=== PATIENT | female | born 1930 | race African-American/Black ===

== ENCOUNTER 2016-05-20 09:14 | Outpatient (CLI) | payer MEDICARE ==
[2016-05-20 12:43] LABS: #Basophils 0.1 thou/uL (0.0-0.2); #Eosinphils 0.4 thou/uL (0.0-0.7); #Lymphocytes 2.5 thou/uL (1.20-3.40); #Monocytes 0.6 thou/uL (0.11-0.59); #Neutrophils 3.3 thou/uL (1.40-6.50); %Basophils 2.2 % (0.0-1.0); %Eosinophils 5.5 % (0.0-10.0); %Lymphocytes 36.2 % (21.0-51.0); %Monocytes 8.3 % (0.0-10.0); Hematocrit 44.4 % (36.0-47.0); Mean Platelet Volume 8.1 fL (7.4-10.4); Red Blood Cell (RBC) Count 5.03 mill/uL (4.20-5.40); White Blood Cell (WBC) Count 6.8 thou/uL (4.8-10.8)
[2016-05-20 13:20] LABS: Bilirubin Negative (Negative); Blood, Urine Negative (Negative); Glucose, Urine (Dipstick) Negative (Negative); Ketone, Urine Negative (Negative); Nitrite Negative (Negative); Protein, Urine (Dipstick) Negative (Neg-Trace); Urobilinogen 0.2 mg/dL (0.2-1.0)
[2016-05-20 13:21] LABS: ALT (SGPT) 10 U/L (0-55); AST (SGOT) 15 U/L (5-34); Alkaline Phosphatase 73 U/L (40-150); Anion Gap 18 mmol/L (10-20); BUN (Urea Nitrogen) 26 mg/dL (9.8-20.1); Bilirubin, Total 0.6 mg/dL (0.2-1.2); Calc. Creatinine Clearance 0 mL/min (70-130); Calcium 9.4 mg/dL (7.8-10.44); Carbon Dioxide 22 mmol/L (23-31); Chloride 106 mmol/L (98-107); Estimated GFR-MDRD 38; Globulin 2.6 g/dL (2.4-3.5); LDL Cholesterol, Calculated 83 mg/dL; Protein, Total 6.7 g/dL (5.8-8.1)
[2016-05-20 13:54] LABS: Bacteria/HPF 4+ HPF (None Seen); RBC/HPF 0-3 HPF (0-3)
== END 2016-05-20 09:15 ==
LOC: NAVSJIPCSP 09:14
PROVIDERS: ATTEND Internal Medicine
DX: I13.0 Hypertensive heart and chronic kidney disease with heart failure and stage 1 through stage 4 chronic kidney disease, or unspecified chronic kidney disease (principal); I50.9 Heart failure, unspecified; N18.3 Chronic kidney disease, stage 3 (moderate); M19.90 Unspecified osteoarthritis, unspecified site; Z79.899 Other long term (current) drug therapy
CPT/HCPCS: 36415; 80053; 80061; 81003; 81015; 84443; 85025

== ENCOUNTER 2016-09-20 11:54 | Outpatient (CLI) | payer MEDICARE, OTHER ==
[2016-09-20 13:39] LABS: Anion Gap 18 mmol/L (10-20); BUN (Urea Nitrogen) 21 mg/dL (9.8-20.1); Calc. Creatinine Clearance 0 mL/min (70-130); Calcium 9.4 mg/dL (7.8-10.44); Carbon Dioxide 27 mmol/L (23-31); Chloride 105 mmol/L (98-107); Estimated GFR-MDRD 45; Glucose 104 mg/dL (83-110); Potassium 3.8 mmol/L (3.5-5.1); Sodium 146 mmol/L (136-145)
== END 2016-09-20 11:55 | disposition home or self-care (01) ==
LOC: NAVSJIPCSP 11:54
PROVIDERS: ATTEND Internal Medicine
DX: I50.9 Heart failure, unspecified (principal); N18.3 Chronic kidney disease, stage 3 (moderate)
CPT/HCPCS: 36415; 80048; 83880

== ENCOUNTER 2016-09-29 08:22 | Emergency (ER) | payer MEDICARE, OTHER ==
[2016-09-29] MEDS ORDERED: Nitroglycerin 2% Ointment 1 INCH/1 GM Packet ONE (08:33)
[2016-09-29] MEDS ORDERED: Iopamidol 370 76% 100 ML VIAL ONE (09:00)
[2016-09-29 09:20] LABS: Hemoglobin 11.5 g/dL (12.0-16.0); Mean Corpuscular HGB CONC 31.9 g/dL (32.0-36.0); Mean Corpuscular Hemoglobin 26.7 pg (27.0-31.0); Mean Corpuscular Volume 83.8 fl (81.0-99.0); Mean Platelet Volume 7.1 fL (7.4-10.4); Platelet Count 162 thou/uL (130-400); RBC Distribution Width 13.2 % (11.5-14.5); Red Blood Cell (RBC) Count 4.29 mill/uL (4.20-5.40); White Blood Cell (WBC) Count 7.9 thou/uL (4.8-10.8)
[2016-09-29 09:21] LABS: Band 2 % (5-11); Eosinophils 3 % (0-10); Lymphocytes 7 % (21-51); MDiff Complete? YES; Monocytes 3 % (0-10); Neutrophil 85 % (42-75); PLT Morphology Comment Appears Adequate
[2016-09-29 09:23] LABS: ALT (SGPT) 13 U/L (8-55); AST (SGOT) 19 U/L (5-34); Albumin 3.4 g/dL (3.4-4.8); Alkaline Phosphatase 65 U/L (40-150); Anion Gap 17 mmol/L (10-20); BUN (Urea Nitrogen) 12 mg/dL (9.8-20.1); Bilirubin, Total 0.9 mg/dL (0.2-1.2); Calc. Creatinine Clearance 0 mL/min (70-130); Calcium 8.8 mg/dL (7.8-10.44); Carbon Dioxide 17 mmol/L (23-31); Chloride 111 mmol/L (98-107); Estimated GFR-MDRD 66; Globulin 2.8 g/dL (2.4-3.5); Glucose 118 mg/dL (83-110); Potassium 3.8 mmol/L (3.5-5.1); Protein, Total 6.2 g/dL (6.0-8.3); Sodium 141 mmol/L (136-145); Troponin I 0.044 ng/mL (< 0.028)
[2016-09-29] MEDS ORDERED: Furosemide 20 MG/2 ML VIAL ONE (09:32)
--- NOTE | 2016-09-29 09:40 | RAD ---
AP PORTABLE SITTING CHEST 1 VIEW: Date: 09/29/16 HISTORY: 86-year-old female with shortness of breath. COMPARISON: 02/03/12. FINDINGS: Monitor leads overlie the chest. Cardiomegaly with extensive bilateral interstitial and alveolar par enchymal changes bilaterally, somewhat more confluent on the right side, including the right upper l obe and right lower lobe. There are bilateral pleural effusions. These bilateral parenchymal changes are new from the prior study. There is severe bilateral shoulder joint arthrosis. IMPRESSION: Cardiomegaly with bilateral interstitial and alveolar parenchymal changes, slightly more confluent i n the right upper lobe and right lower lobe, with bilateral pleural effusions and cardiomegaly, evid ence for some asymmetric pulmonary edema. In an appropriate clinical situation, bilateral pneumonia could have a similar appearance, or a combination of pneumonia and edema is another consideration. C orrelate clinically in this regard. POS: OFF
[2016-09-29] MEDS ORDERED: Metoprolol Tartrate 5 MG/5 ML VIAL ONE (10:23)
[2016-09-29] MEDS ORDERED: Albuterol Sulfate 2.5 mg/0.5 ml Neb ONE ×2 (10:24)
[2016-09-29] MEDS ORDERED: cefTRIAXone\\ROCEPHIN 2 GM VIAL ONE (10:25)
[2016-09-29] MEDS ORDERED: Sodium Chloride 0.9% 100 ML ONE (10:26)
--- NOTE | 2016-09-29 11:04 | CT ---
CT ANGIO OF CHEST PERFORMED WITH IV CONTRAST ENHANCEMENT WITH 3D RECONSTRUCTIONS: Date: 09/29/16 HISTORY: Shortness of breath. FINDINGS: There is asymmetric predominantly right-sided parahilar interstitial alveolar lung change. There are associated bilateral pleural effusions, right larger than left. No pulmonary nodules are identified . The thoracic aorta is normal in caliber. Pulmonary arteries are well opacified. There is no CT evide nce for pulmonary embolus. Visualized liver parenchyma shows no focal abnormalities. Left kidney is only partially visualized. There is a cortical calcification noted. There is what appears to be some dilatation to the left mago al pelvis. I am not certain whether this is renal pelvis dilatation or parapelvic cysts. It does lolis ear to be a different appearance than on an older 2012 study. It raises the possibility there may be a ureteral calculus. IMPRESSION: 1. No CT evidence of pulmonary embolus. 2. Parahilar lung changes asymmetrically involving the right lung with bilateral effusions. This is most likely related to an asymmetric pulmonary edema pattern, less likely pneumonia. 3. Suggestion of dilatation of partially visualized left renal collecting system. Left kidney appea rs somewhat atrophic. The possibility there is an obstructing ureteral calculus should be considered and a CT of the abdomen and pelvis may be indicated if clinically indicated. 4. Trace ascites also incidentally noted. POS: ES
[2016-09-29] MEDS ORDERED: Azithromycin 500 MG VIAL ONE (11:28)
[2016-09-29] MEDS ORDERED: Sodium Chloride 0.9% 250 ML 250 ML ONE (11:28)
== END 2016-09-29 12:13 | disposition short-term general hospital (02) ==
LOC: NAV ERS 08:22
DX: R60.0 Localized edema (principal); R79.89 Other specified abnormal findings of blood chemistry; J90 Pleural effusion, not elsewhere classified; K21.9 Gastro-esophageal reflux disease without esophagitis; I10 Essential (primary) hypertension; Z79.891 Long term (current) use of opiate analgesic; Z79.82 Long term (current) use of aspirin; Z79.899 Other long term (current) drug therapy
CPT/HCPCS: 71010; 71275; 80053; 82553; 83880; 84484; 85025; 85379; 87040; 93005; 94640; 96365; 96367; 96375; J0360; J0456; J0696; J1940; J7050; J7611; J7620

== ENCOUNTER 2016-10-11 12:10 | Outpatient (CLI) | payer MEDICARE ==
[2016-10-11 13:36] LABS: Anion Gap 21 mmol/L (10-20); BUN (Urea Nitrogen) 20 mg/dL (9.8-20.1); Calc. Creatinine Clearance 0 mL/min (70-130); Calcium 8.9 mg/dL (7.8-10.44); Carbon Dioxide 14 mmol/L (23-31); Chloride 108 mmol/L (98-107); Estimated GFR-MDRD 46; Glucose 106 mg/dL (83-110); Sodium 138 mmol/L (136-145)
[2016-10-11 14:24] LABS: Potassium 5.4 mmol/L (3.5-5.1)
== END 2016-10-11 12:11 | disposition home or self-care (01) ==
LOC: NAV LAB 12:10
PROVIDERS: ATTEND Internal Medicine
DX: N18.3 Chronic kidney disease, stage 3 (moderate) (principal); I50.9 Heart failure, unspecified
CPT/HCPCS: 36415; 83880

== ENCOUNTER 2016-10-20 15:34 | Outpatient (CLI) | payer MEDICARE ==
[2016-10-20 16:53] LABS: Anion Gap 17 mmol/L (10-20); BUN (Urea Nitrogen) 15 mg/dL (9.8-20.1); Calc. Creatinine Clearance 0 mL/min (70-130); Calcium 9.1 mg/dL (7.8-10.44); Carbon Dioxide 22 mmol/L (23-31); Chloride 108 mmol/L (98-107); Estimated GFR-MDRD 50; Glucose 102 mg/dL (83-110); Potassium 4.3 mmol/L (3.5-5.1); Sodium 143 mmol/L (136-145)
== END 2016-10-20 15:35 | disposition home or self-care (01) ==
LOC: NAV LAB 15:34
PROVIDERS: ATTEND Nurse Practitioner Family
DX: I50.9 Heart failure, unspecified (principal)
CPT/HCPCS: 80048

== ENCOUNTER 2016-12-08 13:26 | Outpatient (CLI) | payer MEDICARE, OTHER ==
[2016-12-08 14:10] LABS: Anion Gap 17 mmol/L (10-20); BUN (Urea Nitrogen) 19 mg/dL (9.8-20.1); Calc. Creatinine Clearance 0 mL/min (70-130); Carbon Dioxide 23 mmol/L (23-31); Chloride 104 mmol/L (98-107); Estimated GFR-MDRD 53; Glucose 98 mg/dL (83-110); Potassium 4.1 mmol/L (3.5-5.1); Sodium 140 mmol/L (136-145)
== END 2016-12-08 13:27 | disposition home or self-care (01) ==
LOC: NAV LAB 13:26
PROVIDERS: ATTEND Internal Medicine
DX: N18.3 Chronic kidney disease, stage 3 (moderate) (principal); I50.9 Heart failure, unspecified
CPT/HCPCS: 36415; 80048; 83880

== ENCOUNTER 2017-07-16 09:34 | Inpatient (IN) | payer MEDICARE ==
[2017-07-16] MEDS ORDERED: Acetaminophen 500 MG TAB ONE (10:16)
[2017-07-16] MEDS ORDERED: Sodium Chloride 0.9% 250 ML 0 ML ONE (10:17)
[2017-07-16] MEDS ORDERED: Sodium Chloride 0.9% 100 ML ONE (10:17)
[2017-07-16] MEDS ORDERED: cefTRIAXone\\ROCEPHIN 1 GM VIAL ONE (10:17)
[2017-07-16] MEDS ORDERED: Sodium Chloride 0.9% 250 ML 250 ML ONE (10:18)
[2017-07-16 10:25] LABS: #Basophils 0.1 thou/uL (0.0-0.2); #Eosinphils 0.5 thou/uL (0.0-0.7); #Lymphocytes 0.9 thou/uL (1.20-3.40); #Monocytes 0.9 thou/uL (0.11-0.59); #Neutrophils 6.5 thou/uL (1.40-6.50); %Basophils 1.6 % (0.0-1.0); %Eosinophils 5.1 % (0.0-10.0); %Lymphocytes 10.5 % (21.0-51.0); %Monocytes 9.8 % (0.0-10.0); Hemoglobin 12.6 g/dL (12.0-16.0); Mean Corpuscular HGB CONC 31.7 g/dL (32.0-36.0); Mean Corpuscular Hemoglobin 25.7 pg (27.0-31.0); Mean Corpuscular Volume 81.3 fl (81.0-99.0); Mean Platelet Volume 8.7 fL (7.4-10.4); Platelet Count 182 thou/uL (130-400); RBC Distribution Width 12.4 % (11.5-14.5); Red Blood Cell (RBC) Count 4.88 mill/uL (4.20-5.40); White Blood Cell (WBC) Count 8.9 thou/uL (4.8-10.8)
[2017-07-16 10:42] LABS: CKMB 0.3 ng/mL (0-6.6)
[2017-07-16 10:57] LABS: Anion Gap 13 mmol/L (10-20); BUN (Urea Nitrogen) 11 mg/dL (9.8-20.1); Calc. Creatinine Clearance 0 mL/min (70-130); Calcium 8.8 mg/dL (7.8-10.44); Carbon Dioxide 28 mmol/L (23-31); Chloride 102 mmol/L (98-107); Estimated GFR-MDRD 65; Glucose 129 mg/dL (83-110); Potassium 3.1 mmol/L (3.5-5.1); Sodium 140 mmol/L (136-145)
--- NOTE | 2017-07-16 11:03 | RAD ---
AP VIEW OF THE CHEST: INDICATION: Productive cough. COMPARISON: Prior exam dated 10/01/16. FINDINGS: There is cardiomegaly with pulmonary vascular congestion. There are small bilateral pleural effusion s. No confluent airspace opacity is evident. Chronic osseous change is similar. IMPRESSION: Findings most suspicious for volume overload or congestive heart failure. POS: [facility]
[2017-07-16] MEDS ORDERED: Potassium Chloride 20 MEQ/100 ML PREMIX BAG ONE (11:15)
[2017-07-16] MEDS ORDERED: Furosemide 40 MG/4 ML VIAL ONE (11:33)
[2017-07-16 12:30] LABS: Bilirubin Negative (Negative); Blood, Urine Negative (Negative); Glucose, Urine (Dipstick) Negative (Negative); Leukocyte Moderate (Negative); Nitrite Negative (Negative); Protein, Urine (Dipstick) 30 mg/dL (Neg-Trace); Specific Gravity, Urine 1.015 (1.005-1.030)
[2017-07-16 12:32] LABS: Clarity SL HAZY (Clear)
[2017-07-16 12:46] LABS: Bacteria/HPF 3+ HPF (None Seen); RBC/HPF 0-3 HPF (0-3); Transitional Epithelial 0-3 HPF (0-3)
[2017-07-16] MEDS ORDERED: HYDROcodone/Acetaminophen 5/325 mg Tablet PO PRN ×2 (14:43)
[2017-07-16] MEDS ORDERED: Ondansetron HCl/PF 4 MG/2 ML Vial IVP PRN (14:43)
[2017-07-16] MEDS ORDERED: Acetaminophen 325 MG TAB PO PRN (14:43)
[2017-07-16] MEDS ORDERED: Sodium Chloride 0.9% 1,000 ML IV SCH (14:43)
[2017-07-16] MEDS ORDERED: Ondansetron ODT 4 MG TAB SL PRN (14:43)
[2017-07-16] MEDS ORDERED: Acetaminophen 500 MG TAB PO PRN (17:42)
[2017-07-16] MEDS ORDERED: Bisacodyl 10 MG SUPP PR PRN (17:43)
[2017-07-16] MEDS ORDERED: Milk Of Magnesia 30 ML UDCUP PO PRN (17:43)
[2017-07-16] MEDS ORDERED: Loperamide HCl 2 MG CAP PO PRN (17:43)
[2017-07-16] MEDS: hydrALAZINE 25 MG TAB PO SCH (21:50)
[2017-07-17 05:34] LABS: Band 5 % (5-11); Eosinophils 6 % (0-10); Hemoglobin 11.4 g/dL (12.0-16.0); Lymphocytes 21 % (21-51); MDiff Complete? YES; Mean Corpuscular HGB CONC 32.1 g/dL (32.0-36.0); Mean Corpuscular Hemoglobin 26.1 pg (27.0-31.0); Mean Corpuscular Volume 81.5 fl (81.0-99.0); Mean Platelet Volume 9.1 fL (7.4-10.4); Monocytes 10 % (0-10); Neutrophil 58 % (42-75); PLT Morphology Comment Appears Adequate; Platelet Count 177 thou/uL (130-400); RBC Distribution Width 12.7 % (11.5-14.5); RBC Morphology Normal; Red Blood Cell (RBC) Count 4.38 mill/uL (4.20-5.40); White Blood Cell (WBC) Count 8.4 thou/uL (4.8-10.8)
[2017-07-17 05:46] LABS: ALT (SGPT) 8 U/L (8-55); AST (SGOT) 12 U/L (5-34); Albumin 2.8 g/dL (3.4-4.8); Alkaline Phosphatase 54 U/L (40-150); Anion Gap 11 mmol/L (10-20); BUN (Urea Nitrogen) 12 mg/dL (9.8-20.1); Bilirubin, Total 0.6 mg/dL (0.2-1.2); Calc. Creatinine Clearance 50 mL/min (70-130); Calcium 8.3 mg/dL (7.8-10.44); Carbon Dioxide 28 mmol/L (23-31); Chloride 104 mmol/L (98-107); Estimated GFR-MDRD 65; Globulin 2.7 g/dL (2.4-3.5); Glucose 111 mg/dL (83-110); Potassium 3.1 mmol/L (3.5-5.1); Protein, Total 5.5 g/dL (6.0-8.3); Sodium 140 mmol/L (136-145)
--- NOTE | 2017-07-17 06:13 | HP ---
DATE OF ADMISSION: 07/16/2017 HISTORY OF PRESENT ILLNESS: This is a very pleasant 87-year-old white female that presented to the emergency room with a 4 day history of cough productive of sputum. She states it just kind of started out of the blue, and she has not had any significant findings of cold, wheezing or feelings of SOB. The patient has also had some urinary burning. Nonetheless, she presented to the emergency room, was evaluated and found on chest x-ray to have some cardiomegaly and pulmonary vascular congestion. She also noted to have a urinary tract infection. She was given Lasix 40 IV push, potassium chloride 20 mEq IV piggyback, a gram of vancomycin, a gram of ceftriaxone, a DuoNeb treatment and some Extra Strength Tylenol. She was admitted to Observation for primary diagnosis of congestive heart failure along with a secondary diagnosis of urinary tract infection. PAST MEDICAL HISTORY: 1. Significant for congestive heart failure. 2. Chronic kidney disease stage 3. 3. Hypertension. 4. Osteoarthritis. 5. Intestinal adhesions. 6. Trochanteric tendonitis of the right hip. PAST SURGICAL HISTORY: The patient had appendectomy, cholecystectomy and abdominal hysterectomy. FAMILY HISTORY: Positive for the father being , diagnosed with hypertension. SOCIAL HISTORY: Reveals the patient is a nonsmoker. Does not use alcohol. Does not use drugs. Does drink some caffeine. ALLERGIES: Reveals she is allergic to ALLOPURINOL and ALEVE. PRESENT MEDICATIONS: Reveals she is on the following medications: 1. Aspirin 81 mg a day. 2. Atenolol 100 mg once a day. 3. Amlodipine 5 mg once a day. 4. Lisinopril 40 mg once a day. 5. Hydralazine 25 mg 2 tablets twice a day. 6. Aspirin 81 mg a day. 7. Furosemide 40 mg half a tablet twice a day. 8. Clonidine 0.2 mg patch once a week, transdermal patch once a week. 9. Omeprazole 20 mg a day. 10. Potassium chloride 20 mEq every day. 11. Tramadol 50 mg 1 tablet by mouth up to twice a day. REVIEW OF SYSTEMS: Reveal the patient has had some low grade temperature, but no sweats. She has had some chills. Denies any headache, denies any runny nose , sinus congestion, popping of the ears. She does admit to some productive cough, but no wheezing, no shortness of breath. Denies any chest pain, palpitations or pain radiating down her arms. She denies any nausea, vomiting, diarrhea or constipation. She does admit to some urgency and increased urination with occasional dysuria. She denies any significant arthritis, different from usual. Denies any edema in her legs, although she does have 1+ edema on admission. PHYSICAL EXAMINATION: GENERAL: This is a well-developed, well-nourished, very pleasant white female in no apparent distress at this time. HEENT: Reveals normocephalic, nontraumatic cranium. The pupils are equally round and reactive. Extraocular movements intact. Nose and throat are slightly dry. NECK: Supple, without masses, nodes or bruits. LUNGS: The chest is clear to auscultation in the upper regions, but has some mild crackles in the lower regions. HEART: Reveals a regular rate and rhythm without murmurs, gallops or rubs. ABDOMEN: Obese, soft, nontender, without organomegaly. Normal bowel sounds are noted in all 4 quadrants. No rebound or guarding is noted. : Deferred. EXTREMITIES: Reveal no clubbing, cyanosis with trace to 1+ edema. NEUROLOGIC: The patient is grossly intact. IMPRESSION: 1. Acute on chronic congestive heart failure. 2. Chronic kidney disease stage 3. 3. Hypertension. 4. Osteoarthritis. 5. History of intestinal bands with obstruction in the past. 6. History of gastroesophageal reflux disease with reflux. PLAN: 1. The patient is admitted to the hospital. 2. We will diurese her slowly. 3. We will continue to monitor her blood pressure closely. 4. Continue all of her present medications. 5. We will monitor her renal status and make sure she does not over exert her kidneys. 6. We will notify Dr. Daniel of her admission, so he can see her tomorrow. [facility] INSANEMarian[facility]
[2017-07-17] MEDS: Docusate 100 MG CAP PO SCH (08:35)
[2017-07-17] MEDS: Potassium Chloride 10 MEQ TAB PO SCH (08:35)
[2017-07-17] MEDS: Lisinopril 20 MG TAB PO SCH (08:35)
[2017-07-17] MEDS: Polyethylene Glycol 3350 17 GM Packet PO SCH (08:35)
[2017-07-17] MEDS: hydrALAZINE 25 MG TAB PO SCH ×2 (08:36→20:45)
[2017-07-17] MEDS: Amlodipine 5 MG TAB PO SCH (08:36)
[2017-07-17] MEDS ORDERED: Furosemide 20 MG TAB PO SCH (09:00)
[2017-07-17] MEDS ORDERED: Furosemide 40 MG/4 ML VIAL SLOW IVP SCH (09:00)
[2017-07-17] MEDS: Atenolol 25 MG TAB PO SCH (09:53)
[2017-07-17] MEDS: Furosemide 40 MG TAB PO SCH (09:53)
[2017-07-17] MEDS ORDERED: Acetaminophen 325 MG TAB PO PRN (15:48)
--- NOTE | 2017-07-17 16:46 | PRG ---
DATE OF SERVICE: 07/17/2017 SUBJECTIVE: The patient is an 87-year-old black female patient of mine with history of hypertension, systolic heart failure, and diastolic heart failure, who presented with an exacerbation of heart gerardo lure with cough, shortness of breath, was found to have pulmonary congestion on x-ray and physical ex amination was placed in observation, given IV Lasix and today, states she feels somewhat better, but is still having significant cough, shortness of breath, sputum production. OBJECTIVE: CHEST: Chest x-ray does show significant pulmonary congestion. LUNGS: Still show diffuse rales and rhonchi. CARDIAC: Displays regular rhythm. VITAL SIGNS: Show blood pressure 114/53, O2 sats 98%, respirations 18, pulse 72, afebrile. LABORATORY DATA: Laboratories did show white count 8400, hematocrit 35, hemoglobin 11. BNP was elev ated 369 with a sodium of 141, potassium 3.1, chloride 104, bicarbonate 28, glucose 111. Skin and ex tremities did show 1+ edema. ASSESSMENT: 1. Hypertension controlled to goal. 2. Diastolic and systolic congestive heart failure with exacerbation with pulmonary edema on chest x -ray and examination with minimal response to one dose of Lasix given, IV in the emergency room and t hen orally here in the observation sotomayor the dose of 20 mg. PLAN: Admit to the hospital, continue oral furosemide. Give another dose of IV furosemide. Repeat chest x-ray, BNP, and BMP in the a.m.
[2017-07-17 16:49] LABS: Anion Gap 15 mmol/L (10-20); BUN (Urea Nitrogen) 17 mg/dL (9.8-20.1); Calc. Creatinine Clearance 47 mL/min (70-130); Calcium 8.1 mg/dL (7.8-10.44); Carbon Dioxide 29 mmol/L (23-31); Chloride 104 mmol/L (98-107); Estimated GFR-MDRD 61; Glucose 122 mg/dL (83-110); Potassium 3.6 mmol/L (3.5-5.1); Sodium 144 mmol/L (136-145)
--- NOTE | 2017-07-17 19:25 | RAD ---
CHEST ONE VIEW: History: CHF Comparison: Prior day. FINDINGS: There continues to be cephalization of the pulmonary vasculature. Heart size is enlarged. Small effusions. Moderate edema, both interstitial and alveolar. Distal clavicular osteolysis with rotator cuff arthropathy bilaterally. IMPRESSION: Similar appearance of findings suggesting congestive heart failure. No significant improvement. POS: [facility]
[2017-07-17] MEDS: Famotidine 20 MG TAB PO SCH (20:45)
[2017-07-17] MEDS: Ondansetron ODT 4 MG TAB PO PRN (20:45)
[2017-07-18 05:37] LABS: Anion Gap 13 mmol/L (10-20); BUN (Urea Nitrogen) 17 mg/dL (9.8-20.1); Calc. Creatinine Clearance 49 mL/min (70-130); Calcium 8.4 mg/dL (7.8-10.44); Carbon Dioxide 29 mmol/L (23-31); Chloride 104 mmol/L (98-107); Estimated GFR-MDRD 63; Glucose 115 mg/dL (83-110); Potassium 3.5 mmol/L (3.5-5.1); Sodium 142 mmol/L (136-145)
[2017-07-18] MEDS ORDERED: Furosemide 40 MG/4 ML VIAL SLOW IVP SCH (06:45)
--- NOTE | 2017-07-18 07:06 | PRG ---
DATE OF SERVICE: 07/18/2017 SUBJECTIVE: The patient is an 87-year-old white female with a history of hypertension, combined syst olic and diastolic heart failure who presents with a cough and was found to have pulmonary congestion and most likely cough from pulmonary edema. She has responded to IV Lasix with greatly decreased co ugh and dyspnea and rested well through the night, but still has not been up out of the room. OBJECTIVE: VITAL SIGNS: Blood pressure 127/60, O2 sats 95% on 2 liters, respirations 20, pulse 70, afebrile. LUNGS: Lungs show decreased, but persistent wheezes and rales. CARDIAC: Cardiac examination shows regular rhythm, S4, no other gallops or murmurs. SKIN AND EXTREMITIES: Skin and extremities showed no edema. Chest x-ray shows persistent pulmonary congestion. LABORATORY DATA: Shows sodium 142, potassium 3.5, chloride 104, bicarb 29, BUN 17, creatinine 1.0, g lucose 115. BNP still elevated at 332. Intake and output, however, is markedly negative with 1200 i n, 2550 out. ASSESSMENT: Exacerbation of congestive heart failure, most likely due to diastolic heart failure, i mproving on IV and oral Lasix with stable renal function. PLAN: Continue oral Lasix 40 daily. Give 1 time dose of 40 mg of Lasix IV daily, ambulate in the ro om. Discontinue oxygen if possible.
[2017-07-18] MEDS: Polyethylene Glycol 3350 17 GM Packet PO SCH (08:32)
[2017-07-18] MEDS: Atenolol 25 MG TAB PO SCH (08:32)
[2017-07-18] MEDS: Furosemide 40 MG TAB PO SCH (08:33)
[2017-07-18] MEDS: Lisinopril 20 MG TAB PO SCH (08:33)
[2017-07-18] MEDS: Amlodipine 5 MG TAB PO SCH (08:33)
[2017-07-18] MEDS: Famotidine 20 MG TAB PO SCH ×2 (08:33→20:09)
[2017-07-18] MEDS: hydrALAZINE 25 MG TAB PO SCH ×2 (08:33→20:09)
[2017-07-18] MEDS: Potassium Chloride 10 MEQ TAB PO SCH (08:33)
[2017-07-18] MEDS: Docusate 100 MG CAP PO SCH (08:34)
[2017-07-18] MEDS ORDERED: Lidocaine 5% Patch TD SCH (17:45)
[2017-07-18] MEDS: Ondansetron ODT 4 MG TAB PO PRN (20:09)
[2017-07-18] MEDS ORDERED: Lidocaine Patch Removal 1 EACH TOP SCH (21:00)
[2017-07-19 05:40] LABS: Anion Gap 11 mmol/L (10-20); BUN (Urea Nitrogen) 18 mg/dL (9.8-20.1); Calc. Creatinine Clearance 44 mL/min (70-130); Calcium 8.5 mg/dL (7.8-10.44); Carbon Dioxide 28 mmol/L (23-31); Chloride 106 mmol/L (98-107); Estimated GFR-MDRD 56; Glucose 112 mg/dL (83-110); Potassium 3.3 mmol/L (3.5-5.1); Sodium 142 mmol/L (136-145)
[2017-07-19 06:20] VITALS: BMI 31.5
[2017-07-19] MEDS ORDERED: Guaifenesin DM 100-10/5 ML UDCUP PO PRN (07:08)
[2017-07-19 07:33] VITALS: TEMP 99.7
[2017-07-19] MEDS: Atenolol 25 MG TAB PO SCH (08:29)
[2017-07-19] MEDS: Potassium Chloride 10 MEQ TAB PO SCH (08:29)
[2017-07-19] MEDS: Amlodipine 5 MG TAB PO SCH (08:29)
[2017-07-19] MEDS: Docusate 100 MG CAP PO SCH (08:29)
[2017-07-19] MEDS: hydrALAZINE 25 MG TAB PO SCH (08:29)
[2017-07-19] MEDS: Famotidine 20 MG TAB PO SCH (08:29)
[2017-07-19] MEDS: Lisinopril 20 MG TAB PO SCH (08:29)
[2017-07-19] MEDS: Polyethylene Glycol 3350 17 GM Packet PO SCH (08:29)
[2017-07-19] MEDS: Furosemide 40 MG TAB PO SCH (08:29)
[2017-07-19] MEDS ORDERED: Lidocaine 5% Patch TD SCH (09:00)
[2017-07-19 16:19] VITALS: BP 167/71
--- NOTE | 2017-07-19 16:39 | RAD ---
PA AND LATERAL CHEST: History: CHF, pneumonia. FINDINGS: Comparison is made with exam dated 07-17-17. The heart size is enlarged. There is pulmonary vascular congestion with cephalization. No lobar conso lidation, pneumothoraces, or large pleural effusions are seen. There are degenerative changes in spin e. IMPRESSION: Mild CHF. POS: [facility]
--- NOTE | 2017-07-19 16:41 | RAD ---
LEFT KNEE FOUR VIEWS: History: Left knee pain. FINDINGS/IMPRESSION: There are post op changes of recent total knee arthroplasty in good position and alignment. No fractu re, dislocation, or bony destruction is seen. No periprosthetic lucency is identified to suggest loos ening. POS: [facility]
--- NOTE | 2017-07-20 04:59 | DIS ---
FINAL DIAGNOSES: 1. Hypertensive cardiomyopathy with exacerbation of congestive heart failure. 2. Severe degenerative joint disease with inability to maintain activities of daily living. 3. Chronic kidney disease stage 3. 4. Significant hypertension. 5. History of intestinal adhesions. HOSPITAL COURSE: The patient is an 87-year-old black female well known to myself with a long history of hypertension, hypertensive cardiomyopathy, living alone at home, who was doing well at home when she began to have increasing cough and shortness of breath. She was seen in the emergency room and f ound to have exacerbation of congestive heart failure, placed in the observation sotomayor, given 40 mg of Lasix. She appeared to improve, but still continued to have significant pulmonary congestion and ed jannie on physical exam and x-ray and therefore was admitted to the hospital. She was given IV Lasix as well as oral Lasix and slowly, but surely improved with decreasing pulmonary congestion decreasing d yspnea. Her initial vital signs showed to have a temperature 98, pulse 73, respirations 22, O2 sat w as 97% on 2 liters, blood pressure 137/63. Chest x-ray, however, on admission did show pulmonary deb ma. Laboratory showed normal cardiac enzymes, but she did have an elevated BNP to 315, potassium was low at 3.1, sodium 140, chloride 104, bicarb was 28, BUN 12, creatinine 0.98. As mentioned above she slo wly improved with the furosemide with decreasing pulmonary congestion on physical exam and decreasing dyspnea. Repeat chest x-ray on discharge and transfer to the skilled unit showed persistent, but de creased pulmonary congestion. However, she began to have increasing pain in her left knee at the sit e of a previous knee replacement with inability to maintain ADLs. She was seen by Occupational [facility] win[facility] and felt that she was not safe to be discharged home and therefore was transferred to the [facility] to continue PT and OT. There she will be continued on her oral Lasix and monitored for improving p ulmonary congestion. On discharge, her laboratory showed that her sodium was 142, potassium was still low at 3.3 on oral s upplementation, chloride was 106, bicarbonate 28, BUN 18, creatinine 1.11. Urine culture had been do ne which did show bacillus growth less than 25,000 felt to be a contaminant. White count was stable at 8400, hematocrit 35, hemoglobin 11. She had not been given any antibiotics in the emergency room. She will be continued on PT, OT, oral Lasix and will be monitored closely in the skilled unit and w ill be continued on her medications of atenolol 100 mg daily, furosemide 40 daily, hydralazine 25 twi ce daily, lisinopril 40 daily, KCl 10 mEq daily, aspirin 81 daily.
[2017-07-23] MEDS ORDERED: cloNIDine 0.3mg/24 Hour PATCH TD SCH (09:00)
== END 2017-07-19 16:39 | DRG 291 ==
LOC: NAV ERS 09:34 → UNDOADMOB 13:59 → OBSVTOIN 13:59 → NAV ACUTE 13:59
PROVIDERS: ADMIT Family Medicine; ATTEND Family Medicine
DX: I13.0 Hypertensive heart and chronic kidney disease with heart failure and stage 1 through stage 4 chronic kidney disease, or unspecified chronic kidney disease (principal); I50.43 Acute on chronic combined systolic (congestive) and diastolic (congestive) heart failure; N39.0 Urinary tract infection, site not specified; N18.3 Chronic kidney disease, stage 3 (moderate); K21.9 Gastro-esophageal reflux disease without esophagitis; R09.02 Hypoxemia; Z79.82 Long term (current) use of aspirin
CPT/HCPCS: 36415; 71045; 71046; 80048; 80053; 81003; 81015; 82553; 83605; 83880; 84484; 85025; 87040; 87077; 87086; 87186; 87804; 93005; 94640; 94760; 96365; 96366; 96367; 96375; J0696; J1940; J3370; J3480; J7050; J7620; Q0162

== ENCOUNTER 2017-07-19 16:44 | Inpatient (IN) | payer MEDICARE ==
[2017-07-19 17:11] VITALS: BMI 30.2
[2017-07-19] MEDS: Famotidine 20 MG TAB PO SCH (20:19)
[2017-07-19] MEDS: Acetaminophen 500 MG TAB PO PRN (20:19)
[2017-07-19] MEDS: hydrALAZINE 25 MG TAB PO SCH (20:19)
[2017-07-19] MEDS: Guaifenesin DM 100-10/5 ML UDCUP PO PRN (21:19)
[2017-07-20 07:12] LABS: Anion Gap 13 mmol/L (10-20); BUN (Urea Nitrogen) 17 mg/dL (9.8-20.1); Calc. Creatinine Clearance 55 mL/min (70-130); Carbon Dioxide 27 mmol/L (23-31); Chloride 104 mmol/L (98-107); Estimated GFR-MDRD 74; Glucose 118 mg/dL (83-110); Potassium 3.5 mmol/L (3.5-5.1); Sodium 140 mmol/L (136-145)
[2017-07-20] MEDS: Guaifenesin DM 100-10/5 ML UDCUP PO PRN ×2 (08:30→13:17)
[2017-07-20] MEDS: Polyethylene Glycol 3350 17 GM Packet PO SCH (08:31)
[2017-07-20] MEDS: Docusate 100 MG CAP PO SCH (08:31)
[2017-07-20] MEDS: Famotidine 20 MG TAB PO SCH ×2 (08:31→21:44)
[2017-07-20] MEDS: Amlodipine 5 MG TAB PO SCH (08:32)
[2017-07-20] MEDS: hydrALAZINE 25 MG TAB PO SCH ×2 (08:32→21:44)
[2017-07-20] MEDS: Lisinopril 20 MG TAB PO SCH (08:32)
[2017-07-20] MEDS: Furosemide 40 MG TAB PO SCH (08:33)
[2017-07-20] MEDS: Potassium Chloride 10 MEQ TAB PO SCH (08:33)
[2017-07-20] MEDS ORDERED: FLU VACC QS2017-18 36 mo. & older 0.5 ML SYRINGE IM ONE (09:00)
[2017-07-20] MEDS ORDERED: Prevnar 13-Val Conj/PF 0.5 ML SYRINGE IM ONE (09:00)
[2017-07-20] MEDS: Atenolol 25 MG TAB PO SCH (13:18)
[2017-07-20] MEDS: Acetaminophen 500 MG TAB PO PRN (21:44)
[2017-07-20 21:55] LABS: #Basophils 0.2 thou/uL (0.0-0.2); #Eosinphils 0.2 thou/uL (0.0-0.7); #Lymphocytes 1.9 thou/uL (1.20-3.40); #Monocytes 1.3 thou/uL (0.11-0.59); #Neutrophils 9.4 thou/uL (1.40-6.50); %Basophils 1.5 % (0.0-1.0); %Eosinophils 1.3 % (0.0-10.0); %Lymphocytes 14.5 % (21.0-51.0); %Monocytes 10.1 % (0.0-10.0); %Neutrophils 72.6 % (42.0-75.0); Hemoglobin 11.2 g/dL (12.0-16.0); Mean Corpuscular HGB CONC 32.8 g/dL (32.0-36.0); Mean Corpuscular Hemoglobin 26.2 pg (27.0-31.0); Mean Corpuscular Volume 79.9 fl (81.0-99.0); Mean Platelet Volume 8.2 fL (7.4-10.4); Platelet Count 231 thou/uL (130-400); RBC Distribution Width 12.3 % (11.5-14.5); Red Blood Cell (RBC) Count 4.29 mill/uL (4.20-5.40)
[2017-07-20 23:29] LABS: Bilirubin Negative (Negative); Blood, Urine Trace (Negative); Clarity Clear (Clear); Glucose, Urine (Dipstick) Negative (Negative); Leukocyte Negative (Negative); Nitrite Negative (Negative); Protein, Urine (Dipstick) 30 mg/dL (Neg-Trace)
[2017-07-20 23:34] LABS: Bacteria/HPF Rare-Few HPF (None Seen); RBC/HPF 0-3 HPF (0-3); Squamous Epithelial 0-3 HPF (0-3); WBC/HPF 0-3 HPF (0-3)
--- NOTE | 2017-07-21 08:38 | HP ---
HISTORY OF PRESENT ILLNESS: The patient is a very pleasant 87-year-old white female with a long hist ory of hypertension, hypertensive cardiomyopathy, degenerative joint disease as well as chronic kidne y disease who was admitted to the acute unit because of exacerbation of congestive heart failure, but then developed significant arthritic pain in the left knee, making her unable to walk without assist ance. Despite improvement of congestive heart failure with IV and then oral Lasix she was not able t o maintain ADLs and therefore was transferred to the skilled Unit for PT and OT. On admission now nica villa has no dyspnea at rest and has some minimal dyspnea on exertion, but no chest pain or palpitations. She is complaining of pain in her left knee with no warmth or swelling. She has had a left total k nee replacement in that left knee years ago with no evidence of infection. PAST MEDICAL HISTORY: Remarkable for an admission for intestinal adhesions, as well as a history as mentioned above of hypertension, chronic kidney disease and congestive heart failure. PAST SURGICAL HISTORY: Positive for an appendectomy, cholecystectomy, abdominal hysterectomy. SOCIAL HISTORY: She is a , nonsmoker, nondrinker, lives alone, maintaining ADLs. CURRENT MEDICATIONS: On admission to the acute unit at home included atenolol 100 daily, amlodipine 5 daily, lisinopril 40 daily, hydralazine 50 mg twice daily, aspirin 81 daily, clonidine patch 0.2 mg once weekly, KCl 20 mEq daily, tramadol 50 mg b.i.d. as needed, furosemide 20 mg twice daily. REVIEW OF SYSTEMS: At this time, completely negative except for the pain in the left knee and some m ild cough and some dyspnea on exertion, but with no chest pain, palpitations, fever or chills. She h as no dysuria or hematuria. OBJECTIVE: VITAL SIGNS: Shows her temperature is 100.4, pulse 75, respirations 20, O2 saturations 94% on room a ir, blood pressure 149/68. HEENT: Pupils equal, round, and react to light and accommodation. Sclerae are anicteric. Conjuncti vae pale. NECK: Supple. LUNGS: Show a few crackles in the bases, but no wheezes, rhonchi or rales. CARDIAC: Regular rhythm. ABDOMEN: Soft and nontender. SKIN/EXTREMITIES: Display no edema, clubbing, cyanosis, but significant tenderness on palpation and flexion of the left knee. NEUROLOGIC: Intact. LABORATORY AND X-RAY FINDINGS: Urine culture from acute care did show E. coli at less than 25,000, w hich was treated with Rocephin in the emergency room, but has not been treated since then. White cou nt has increased to 13,000, hematocrit 34, hemoglobin 11. Sodium 140, potassium 3.5, chloride 104, b icarbonate 27, BUN 17, creatinine 0.88, glucose 118. ASSESSMENT AND PLAN: 1. An 87-year-old white female who presented with hypertension and exacerbation of congestive heart failure which has improved with increased Lasix, but still has some evidence of pulmonary congestion on chest x-ray and exam. We will continue increase Lasix to 40 daily and repeat chest x-ray 2. New onset of fever or leukocytosis most likely due to recurrent Escherichia coli urinary tract in fection and will started on Rocephin. Obtain blood and repeat urine cultures. 3. Significant pain in the left knee site of a prosthetic knee with no evidence of infection being t reated with lidocaine patch and we will attempt physical therapy, occupational therapy, and continue tramadol 50 mg every 6 hours as needed for pain.
--- NOTE | 2017-07-21 09:55 | RAD ---
Chest 1 view: COMPARISON: 07/17/17, 07/19/17. FINDINGS: There is atherosclerosis of the aorta. Heart is enlarged. Pulmonary vessels are slightly prominent. Blunting of the left costophrenic angle. The right costophrenic angle is clear. No consolidation or masses. Lungs are hyperinflated. No pneumothorax. Degenerative change of both shoulders. IMPRESSION: 1. Cardiomegaly. 2. Atherosclerosis. POS: [facility]
[2017-07-21] MEDS: Lidocaine 5% Patch TD SCH (09:56)
[2017-07-21] MEDS: Polyethylene Glycol 3350 17 GM Packet PO SCH (09:58)
[2017-07-21] MEDS: Atenolol 25 MG TAB PO SCH (09:59)
[2017-07-21] MEDS: Lisinopril 20 MG TAB PO SCH (09:59)
[2017-07-21] MEDS: Famotidine 20 MG TAB PO SCH ×2 (09:59→20:45)
[2017-07-21] MEDS: hydrALAZINE 25 MG TAB PO SCH ×2 (10:00→20:45)
[2017-07-21] MEDS: Furosemide 40 MG TAB PO SCH (10:00)
[2017-07-21] MEDS: Amlodipine 5 MG TAB PO SCH (10:00)
[2017-07-21] MEDS ORDERED: cloNIDine 0.1mg/24 Hour PATCH TD SCH (10:00)
[2017-07-21] MEDS: Potassium Chloride 10 MEQ TAB PO SCH (10:01)
[2017-07-21] MEDS: Docusate 100 MG CAP PO SCH (10:01)
--- NOTE | 2017-07-21 11:06 | PRG ---
DATE OF SERVICE: 07/21/2017 SUBJECTIVE: The patient feels much better with only complaint of cough, decreasing knee pain, but di d have sweats and chills and fever last night. She is having no dysuria or hematuria, nausea, vomiti ng, abdominal pain. OBJECTIVE: VITAL SIGNS: Shows temperature went to 102 last night, now is 100.4, pulse 72, respirations 20, O2 s ats 94%, blood pressure 131/60. LABORATORY: White count went up to 13,000, hematocrit 34, hemoglobin 11. Sodium 140, potassium 3.5, glucose 118. Urinalysis last night was within normal limits. Chest x-ray this morning showed cardiomegaly with no infiltrates. LUNGS: Lungs only show a few rhonchi. CARDIAC: Cardiac examination shows regular rhythm. ABDOMEN: Soft, nontender. ' EXTREMITIES: Left knee is markedly less tender. ASSESSMENT: 1. Resolving arthritic pain in the left knee. 2. Improved congestive heart failure. 3. Stable hypertension. 4. New onset of fever of unknown etiology, possibly due to bronchitis. Has no evidence of urinary t ract infection. I have drawn blood cultures and will continue on Levaquin 500 daily.
[2017-07-21] MEDS ORDERED: Ondansetron ODT 4 MG TAB SL PRN (14:30)
[2017-07-21] MEDS: Guaifenesin DM 100-10/5 ML UDCUP PO PRN ×2 (16:23→20:49)
[2017-07-21] MEDS: Lidocaine Patch Removal 1 EACH TOP SCH (20:46)
[2017-07-22 05:42] LABS: #Basophils 0.1 thou/uL (0.0-0.2); #Eosinphils 0.3 thou/uL (0.0-0.7); #Lymphocytes 1.6 thou/uL (1.20-3.40); #Monocytes 0.9 thou/uL (0.11-0.59); #Neutrophils 6.2 thou/uL (1.40-6.50); %Basophils 1.2 % (0.0-1.0); %Eosinophils 3.6 % (0.0-10.0); %Lymphocytes 17.5 % (21.0-51.0); %Monocytes 9.9 % (0.0-10.0); %Neutrophils 67.8 % (42.0-75.0); Hemoglobin 10.3 g/dL (12.0-16.0); Mean Corpuscular HGB CONC 31.6 g/dL (32.0-36.0); Mean Corpuscular Hemoglobin 25.7 pg (27.0-31.0); Mean Corpuscular Volume 81.4 fl (81.0-99.0); Mean Platelet Volume 8.8 fL (7.4-10.4); Platelet Count 274 thou/uL (130-400); White Blood Cell (WBC) Count 9.1 thou/uL (4.8-10.8)
[2017-07-22 05:50] LABS: Anion Gap 12 mmol/L (10-20); BUN (Urea Nitrogen) 23 mg/dL (9.8-20.1); Calc. Creatinine Clearance 43 mL/min (70-130); Calcium 8.6 mg/dL (7.8-10.44); Carbon Dioxide 24 mmol/L (23-31); Chloride 108 mmol/L (98-107); Estimated GFR-MDRD 55; Glucose 103 mg/dL (83-110); Potassium 3.8 mmol/L (3.5-5.1); Sodium 140 mmol/L (136-145)
--- NOTE | 2017-07-22 07:44 | PRG ---
DATE OF SERVICE: 07/22/2017 SUBJECTIVE: The patient feels well, lying in bed with no pain in her knee, has been walking in the h all with no shortness of breath or chest pain or cough. OBJECTIVE: VITAL SIGNS: Shows blood pressure is 113/58, pulse 66, temperature 99.4, respirations 18, and O2 sat s is 97% on room air. LUNGS: Clear. CARDIAC: Examination shows regular rhythm. ABDOMEN: Soft and nontender. EXTREMITIES: Left knee, not swollen, tender or red. LABORATORY DATA: Shows white count is down to 9,100, hematocrit 32, hemoglobin 10, normal differenti als. Sodium 140, potassium 3.8, chloride 108, bicarbonate 24, BUN 23, creatinine up to 1.14. ASSESSMENT: 1. Stable hypertension, resolving congestive heart failure on furosemide 40 daily, resolving fever o f unknown etiology on Levaquin 500 daily, stable arthritic pain in left knee. No evidence of infecti on. 2. Increased azotemia, possibly due to diuresis. PLAN: Repeat basic metabolic profile in the a.m. Continue Levaquin 500 daily. Continue Lasix 40 da juan pablo and ambulate. Monitor blood pressure closely. If renal function stabilizes, may discharge home on this medication. If not, we will possibly need to decrease Levaquin and furosemide dose.
[2017-07-22] MEDS: Atenolol 25 MG TAB PO SCH (08:56)
[2017-07-22] MEDS: Lisinopril 20 MG TAB PO SCH (08:57)
[2017-07-22] MEDS: Famotidine 20 MG TAB PO SCH ×2 (08:57→20:52)
[2017-07-22] MEDS: Polyethylene Glycol 3350 17 GM Packet PO SCH (08:58)
[2017-07-22] MEDS: Docusate 100 MG CAP PO SCH (08:58)
[2017-07-22] MEDS: hydrALAZINE 25 MG TAB PO SCH ×2 (08:58→20:52)
[2017-07-22] MEDS: Furosemide 40 MG TAB PO SCH (08:58)
[2017-07-22] MEDS: Potassium Chloride 10 MEQ TAB PO SCH (08:58)
[2017-07-22] MEDS: Amlodipine 5 MG TAB PO SCH (08:58)
[2017-07-22] MEDS: Lidocaine 5% Patch TD SCH (08:59)
[2017-07-22] MEDS: Guaifenesin DM 100-10/5 ML UDCUP PO PRN ×2 (15:12→22:56)
[2017-07-22] MEDS: Acetaminophen 500 MG TAB PO PRN (15:12)
[2017-07-22] MEDS: Lidocaine Patch Removal 1 EACH TOP SCH (20:53)
[2017-07-23 05:55] LABS: #Basophils 0.1 thou/uL (0.0-0.2); #Eosinphils 0.4 thou/uL (0.0-0.7); #Lymphocytes 1.2 thou/uL (1.20-3.40); #Monocytes 0.7 thou/uL (0.11-0.59); %Basophils 1.7 % (0.0-1.0); %Eosinophils 5.4 % (0.0-10.0); %Lymphocytes 16.9 % (21.0-51.0); %Monocytes 8.8 % (0.0-10.0); %Neutrophils 67.3 % (42.0-75.0); Mean Corpuscular HGB CONC 31.6 g/dL (32.0-36.0); Mean Corpuscular Hemoglobin 25.5 pg (27.0-31.0); Mean Corpuscular Volume 80.7 fl (81.0-99.0); Mean Platelet Volume 7.8 fL (7.4-10.4); Platelet Count 282 thou/uL (130-400); Red Blood Cell (RBC) Count 3.93 mill/uL (4.20-5.40); White Blood Cell (WBC) Count 7.4 thou/uL (4.8-10.8)
[2017-07-23 06:06] LABS: Anion Gap 12 mmol/L (10-20); BUN (Urea Nitrogen) 24 mg/dL (9.8-20.1); Calc. Creatinine Clearance 47 mL/min (70-130); Calcium 8.6 mg/dL (7.8-10.44); Carbon Dioxide 24 mmol/L (23-31); Chloride 110 mmol/L (98-107); Estimated GFR-MDRD 61; Glucose 105 mg/dL (83-110); Potassium 4.1 mmol/L (3.5-5.1); Sodium 142 mmol/L (136-145)
[2017-07-23] MEDS ORDERED: cloNIDine 0.1mg/24 Hour PATCH TD SCH (09:00)
[2017-07-23] MEDS ORDERED: Colchicine 0.6 MG TAB PO SCH ×2 (09:30)
[2017-07-23] MEDS: Polyethylene Glycol 3350 17 GM Packet PO SCH (09:32)
[2017-07-23] MEDS: Lidocaine 5% Patch TD SCH (09:34)
[2017-07-23] MEDS: hydrALAZINE 25 MG TAB PO SCH ×2 (09:38→20:51)
[2017-07-23] MEDS: Docusate 100 MG CAP PO SCH (09:38)
[2017-07-23] MEDS: traMADol HCl 50 MG TAB PO PRN ×2 (09:38→20:50)
[2017-07-23] MEDS: Famotidine 20 MG TAB PO SCH ×2 (09:39→20:51)
[2017-07-23] MEDS: Lisinopril 20 MG TAB PO SCH (09:39)
[2017-07-23] MEDS: Amlodipine 5 MG TAB PO SCH (09:39)
[2017-07-23] MEDS: Atenolol 25 MG TAB PO SCH (09:39)
[2017-07-23] MEDS: Furosemide 40 MG TAB PO SCH (09:39)
[2017-07-23] MEDS: Potassium Chloride 10 MEQ TAB PO SCH (09:40)
--- NOTE | 2017-07-23 10:37 | PRG ---
DATE OF SERVICE: 07/23/2017 SUBJECTIVE: The patient feels well except for acute onset of right ankle pain consistent with previo us episode of gout. Denying any shortness of breath or chest pain. OBJECTIVE: VITAL SIGNS: Shows temperature is 96.5, pulse 68, respirations 20, O2 sats 95%, blood pressure 141/6 0. MUSCULOSKELETAL: Right ankle is tender to palpation and warm. SKIN AND EXTREMITIES: Showed no edema. LUNGS: Clear. CARDIAC: Examination shows regular rhythm. LABORATORY DATA: White count 7,400, hematocrit 31, hemoglobin 10. BNP is elevated at 382. Sodium 1 42, potassium 4.1, chloride 110, bicarbonate 24, BUN 24, creatinine 1.03, glucose 105. ASSESSMENT AND PLAN: 1. Acute onset of probable recurrent gout and we will start colchicine 0.6 twice daily. 2. Stable hypertension with resolving diastolic heart failure secondary to hypertension. Continue o n oral Lasix. 3. Leukocytosis, resolved on Levaquin, unknown etiology, possibly occult urinary tract infection, al though growing only contaminant bacillus in one out of two blood cultures with this and we will monit or closely, but still possible plan to discharge home tomorrow.
[2017-07-23] MEDS: Guaifenesin DM 100-10/5 ML UDCUP PO PRN (18:09)
[2017-07-23] MEDS: Colchicine 0.6 MG TAB PO SCH (20:51)
[2017-07-23] MEDS: Lidocaine Patch Removal 1 EACH TOP SCH (20:52)
[2017-07-24 08:19] VITALS: TEMP 97.9
[2017-07-24] MEDS: Amlodipine 5 MG TAB PO SCH (09:22)
[2017-07-24] MEDS: Atenolol 25 MG TAB PO SCH (09:23)
[2017-07-24] MEDS: Furosemide 40 MG TAB PO SCH (09:24)
[2017-07-24] MEDS: Famotidine 20 MG TAB PO SCH (09:24)
[2017-07-24] MEDS: hydrALAZINE 25 MG TAB PO SCH (09:24)
[2017-07-24] MEDS: Docusate 100 MG CAP PO SCH (09:24)
[2017-07-24] MEDS: Lisinopril 20 MG TAB PO SCH (09:25)
[2017-07-24] MEDS: Lidocaine 5% Patch TD SCH (09:25)
[2017-07-24] MEDS: Polyethylene Glycol 3350 17 GM Packet PO SCH (09:26)
[2017-07-24] MEDS: Potassium Chloride 10 MEQ TAB PO SCH (09:26)
[2017-07-24] MEDS: Colchicine 0.6 MG TAB PO SCH (09:28)
[2017-07-24 12:07] VITALS: BP 161/72
--- NOTE | 2017-07-25 11:41 | DIS ---
DATE OF ADMISSION: 07/19/2017 DATE OF DISCHARGE: 07/24/2017 FINAL DIAGNOSES: 1. Diastolic heart failure with exacerbation secondary to hypertension, improved on furosemide thera py. 2. Recurrent gout, resolved with colchicine. 3. Hypertension. 4. Hypertensive cardiomyopathy. 5. Chronic kidney disease, stage 3. 6. History of intestinal adhesions. 7. Osteoarthritis, both knees. HISTORY OF PRESENT ILLNESS: The patient is a very pleasant 87-year-old black female with a long hist ory of multiple medical problems including hypertension, hypertensive cardiomyopathy, degenerative shirlene int disease, chronic kidney disease, who presented with pain in her knee as well as dyspnea and short ness of breath, was found to have an exacerbation of congestive heart failure with no evidence of acu te ischemia. On admission, her temperature was 100.4, blood pressure is 149/68, and O2 sat was 94% o n room air. Lungs showed crackles in the bases, no wheezes or rhonchi. Skin and extremities showed tenderness to palpation with flexion of the left knee. Urine culture showed E. coli, treated initial ly with Rocephin and then with Levaquin. BUN was 17 and creatinine was 0.88. She, as mentioned abov e, was started on Lasix 40 a day, continued on Rocephin and then Levaquin. Her leukocytosis resolved . Blood cultures returned no growth. Urine culture only showed the 10,000-25,000 colony count of mi xed fermin. She did have improvement of her knee pain with treatment with colchicine. [place] [address] to 7400. BNP remained elevated at 382, but her creatinine remained stable at 1.03 with a BUN of 24. Her lungs cleared greatly. She was able to ambulate and able to ADLs and wa s felt to be stable to be discharged home and was discharged home on Tylenol as needed, amlodipine 5 mg daily, Catapres TTS 2 patch daily, colchicine 0.6 mg twice daily as needed, docusate 100 mg daily, famotidine 20 mg twice daily, furosemide 40 mg daily, hydralazine 25 twice daily, Lidoderm patch to the knee as needed daily, lisinopril 40 daily, MiraLax 17 grams daily, KCl 10 mEq daily, tramadol 50 mg every 6 hours as needed, and atenolol 100 mg daily. She will be seen by myself in follow up in 1 week.
== END 2017-07-24 12:21 | disposition home or self-care (01) | DRG 291 ==
LOC: NAV ACUTE 16:44
PROVIDERS: ADMIT Internal Medicine; ATTEND Internal Medicine
DX: I13.0 Hypertensive heart and chronic kidney disease with heart failure and stage 1 through stage 4 chronic kidney disease, or unspecified chronic kidney disease (principal); I50.33 Acute on chronic diastolic (congestive) heart failure; N18.3 Chronic kidney disease, stage 3 (moderate); M10.071 Idiopathic gout, right ankle and foot; M25.562 Pain in left knee; Z79.82 Long term (current) use of aspirin; Z79.899 Other long term (current) drug therapy; Z96.652 Presence of left artificial knee joint
CPT/HCPCS: 36415; 71045; 80048; 81001; 83880; 85025; 87040; 87086; Q0162